=== PATIENT | male | born 1960 | race African-American/Black ===

== ENCOUNTER → 2022-09-08 | Outpatient (CLI) | payer BC | END | disposition home or self-care (01) | LOC: LABWHC1 09:55 | PROVIDERS: ATTEND Surgery Plastic and Reconstructive Surgery | DX: Z01.89 Encounter for other specified special examinations (principal) | CPT/HCPCS: 36415; 93005 ==

== ENCOUNTER 2022-09-25 06:50 | Day surgery (SDC) | payer BC, OTHER ==
[2022-09-15 10:23] VITALS: BMI 25.0
[~2022-09-25 06:50] MED LIST: HEPARIN SODIUM,PORCINE/PF 5,000 UNIT/0.5 ML SYRINGE SQ PRN
[2022-09-25] MEDS ORDERED: ACETAMINOPHEN TAB 500 MG TAB PO STA (07:19)
[2022-09-25] MEDS ORDERED: TAMSULOSIN 0.4 MG CAP.ER.24H PO STA (07:19)
[2022-09-25] MEDS ORDERED: GABAPENTIN 300 MG CAP PO STA (07:19)
[2022-09-25] MEDS ORDERED: MELOXICAM 7.5 MG TAB PO SCH (07:19)
[2022-09-25] MEDS ORDERED: ONDANSETRON 4 MG/2 ML VIAL IVP ONE ×2 (07:24→11:16)
[2022-09-25] MEDS ORDERED: LIDOCAINE 1% (10MG/ML) FOR IV START INTRADERMA PRN (07:24)
[2022-09-25] MEDS ORDERED: LACTATED RINGERS 1,000 ML IV SCH (07:24)
[2022-09-25] MEDS ORDERED: DEXAMETHASONE SOD PHOSPHATE 4 MG/ML 1 ML VIAL IV ONE (07:24)
--- NOTE | 2022-09-25 07:27 | P.GSHP ---
History of Present Illness H&P Date: 09/25/22 CHIEF COMPLAINT: Inguinal hernia, right. HISTORY OF PRESENT ILLNESS: The patient is a 62-year-old male who presents with a history of swelling and pain along the right groin. He has noted increased swelling including pain of the area. Now he presents for repair of his inguinal hernia. PAST MEDICAL HISTORY: Please see list. PAST SURGICAL HISTORY: Please see list. MEDICATIONS: Please see list. ALLERGIES: Please see list. SOCIAL HISTORY: No illicit drug use FAMILY HISTORY: No reports of Crohn disease or ulcerative colitis. REVIEW OF ORGAN SYSTEMS: CONSTITUTIONAL: No reports of fevers or chills. No reports of weight loss despite prior attempts. GI: Denies any blood in stools or constipation. PHYSICAL EXAM: VITAL SIGNS: Stable GENERAL: Well-developed pleasant in no acute distress. HEENT: No scleral icterus. Extraocular movements grossly intact. Moist buccal mucosa. NECK: Supple without lymphadenopathy. CHEST: Unlabored respirations. Equal bilateral excursions. CARDIOVASCULAR: Regular rate and rhythm. Distal 2+ pulses. ABDOMEN: Soft, nondistended. No peritoneal signs. Right groin swelling. MUSCULOSKELETAL: No clubbing, cyanosis, or edema. ASSESSMENT: 1. Inguinal hernia, right initial and symptomatic. PLAN: 1. Recommend proceeding robotic inguinal repair with mesh with possible bilateral approach. 2. Benefits and risks of surgical intervention was discussed including possibility of open technique. 3. DVT prophylaxis. 4. Antibiotic prophylaxis. 5. Non narcotic pain management including abdominal wall block described 6. Blood sugar glucose described. 7. Weight loss management described. Past Medical History Past Medical History: Cancer, Hyperlipidemia, Thyroid Disorder History of Any Multi-Drug Resistant Organisms: None Reported Past Surgical History: Prostate Surgery Additional Past Surgical History / Comment(s): PROSTATECTOMY 2020 Past Anesthesia/Blood Transfusion Reactions: No Reported Reaction Smoking Status: Current every day smoker - Past Family History Mother Family Medical History: No Reported History Father Family Medical History: Cancer Medications and Allergies Home Medications Medication Instructions Recorded Confirmed Type Levothyroxine Sodium [Synthroid] 50 mcg PO DAILY 09/14/22 09/20/22 History Simvastatin 40 mg PO DAILY 09/14/22 09/20/22 History Allergies Allergy/AdvReac Type Severity Reaction Status Date / Time No Known Allergies Allergy Verified 09/15/22 09:45
[2022-09-25] MEDS ORDERED: MIDAZOLAM 2 MG/2 ML VIAL IVP ONE (08:08)
[2022-09-25] MEDS ORDERED: fentaNYL (PF) 50 MCG/1 ML VIAL IVP ONE (08:08)
[2022-09-25] MEDS ORDERED: ROCURONIUM 10 MG/ML (5 ML VIAL) IV ONE (08:43)
[2022-09-25] MEDS ORDERED: LIDOCAINE 2% INJ 20 MG/ML (2 ML VIAL) ONE (08:43)
[2022-09-25] MEDS ORDERED: PROPOFOL 10 MG/ML 20 ML VIAL IV ONE (08:43)
[2022-09-25] MEDS ORDERED: MIDAZOLAM 2 MG/2 ML VIAL ONE (08:43)
[2022-09-25] MEDS ORDERED: ROPIVACAINE 5 MG/ML 30 ML VIAL ONE (08:43)
[2022-09-25] MEDS ORDERED: HYDROmorphone (PF) 1 MG/ML ONE ×2 (08:43)
[2022-09-25] MEDS ORDERED: KETOROLAC 15 MG/ML 1 ML VIAL ONE (08:43)
[2022-09-25] MEDS ORDERED: DEXAMETHASONE SOD PHOSPHATE 4 MG/ML 1 ML VIAL ONE (08:43)
--- NOTE | 2022-09-25 09:02 | P.ANPRN ---
Procedure Note - Anesthesia - Nerve Block Performed Bilateral Erector Spinae Single Time Out Performed: Yes Date of Procedure: 09/25/22 Procedure Start Time: :07 Procedure Stop Time: 08:15 Location of Patient: PreOp Indication: Acute Post-Operative Pain, Requested by Surgeon Sedation Type: Sedate with meaningful contact maintained Preparation: Sterile Prep, Sterile Dressing Position: Prone Catheter: None Needle Types: Facet Needle Gauge: 20 Ultrasound used to visualize needle placement: Yes Ultrasound used to observe medication spread: Yes Injectate: Other (see comment) (ropivacaine 0.25% w/ decadron 2 mg 30 ml per side) Blood Aspirated: No Pain Paresthesia on Injection Noted: No Resistance on Injection: Normal Image Stored and Saved: Yes Events: Uneventful and Well Tolerated
[2022-09-25] MEDS ORDERED: BUPIVACAIN-EPI 0.25%-1:200,000 30 ML VIAL SQ ONE (09:05)
[2022-09-25] MEDS ORDERED: LACTATED RINGERS 1,000 ML IV ONE (09:36)
[2022-09-25 10:15] LABS: Basophils # (A) 0.1 k/uL (0-0.2); Basophils % (A) 1 %; Eosinophils # (A) 0.3 k/uL (0-0.7); Eosinophils % (A) 3 %; HCT 48.2 % (39.0-53.0); HGB 16.2 gm/dL (13.0-17.5); Lymphocytes # (A) 0.9 k/uL (1.0-4.8); Lymphocytes % (A) 10 %; MCH 31.1 pg (25.0-35.0); MCHC 33.7 g/dL (31.0-37.0); MCV 92.3 fL (80.0-100.0); Mean Platelet Volume 10.7; Monocytes # (A) 0.4 k/uL (0-1.0); Monocytes % (A) 4 %; Neutrophils # (A) 7.2 k/uL (1.3-7.7); Neutrophils % (A) 81 %; Platelet Count 186 k/uL (150-450); RBC 5.22 m/uL (4.30-5.90); RDW 14.7 % (11.5-15.5); WBC 8.9 k/uL (3.8-10.6)
[2022-09-25 10:27] VITALS: TEMP 97.5
[2022-09-25] MEDS: HYDROmorphone 0.5 MG/0.5 ML SYRINGE IVP PRN ×2 (10:52→11:22)
--- NOTE | 2022-09-25 11:16 | P.OP ---
Date of Procedure: 09/25/22 Description of Procedure: SURGEON: MARIA LUISA CHU MD PREOPERATIVE DIAGNOSES: 1. Initial right inguinal hernia. 2. History of robotic prostatectomy 3. Hyperlipidemia 4. Hypothyroidism POSTOPERATIVE DIAGNOSES: 1. Initial right inguinal hernia, direct 2. History of robotic prostatectomy 3. Hyperlipidemia 4. Hypothyroidism 5. Peritoneal adhesions, pelvic due to prostatectomy OPERATION: 1. Robotic-assisted da Maryanne Xi laparoscopic lysis of adhesions 2. Robotic-assisted da Maryanne Xi laparoscopic right inguinal hernia repair with mesh, 11.[address] ANESTHESIA: General with local anesthetic ESTIMATED BLOOD LOSS: 5 mL. SPECIMENS REMOVED: Right inguinal hernia sac COMPLICATIONS: None. FINDINGS: 1. Nyhus type II direct inguinal hernia, reducible, initial, 1 cm 2. Absorbable 2-0 VLOC used 3. Multiple open defects superior to the bladder with risk of incarcerated incisional hernia of the pelvis closed using 2-0 VLOC used 4. Distended and redundant sigmoid colon with intermittent sigmoid volvulus reduced 5. Appendix unremarkable 6. Right pelvic adhesions cecum to the abdominal wall identified INDICATIONS: The patient is a 62-year-old gentleman who presents with history of right groin pain and prior prostatectomy. Now presents for definitive surgical intervention. Laparoscopic versus open and robotic approaches were discussed. Benefits and risks including bleeding, infection, injury to the vas deferens as well as sterility and chronic groin pain were reviewed. Placement of mesh was also described. Informed consent was obtained. DESCRIPTION: In the preoperative area, the patient was marked with indelible marker along the inguinal hernia. The patient was brought to the operating room and initially laid in supine position. The abdomen had been prepped and draped in standard sterile fashion. Ioban draping was also placed. Prior to incision, a timeout protocol was confirmed with surgical team regarding patient's name including procedures to be performed and location along the right groin. Initial positioning for the robotic assisted ports were selected whereby 20 cm superior to the target anatomy, 0 degree 5 mm laparoscopic trocar entry was performed at the left upper quadrant. The abdomen was insufflated to 15 mmHg which he had tolerated well. Diagnostic laparoscopy demonstrated a indirect inguinal hernia along the right groin. Next, along the epigastrium, 8 mm robot trocar was placed. An 8-mm robotic trocar was placed under direct visualization at the right upper quadrant. An 8 mm port was placed at the left upper quadrant. All trocars were positioned between 8 to 10-cm apart from each other. An accessory trocar was placed on the right lateral abdominal wall 12 mm. The [employer] XI robot was primed, draped, prepared for docking along the right side of the patient. The patient was placed in Trendelenberg position 21-degrees. I then went to the [employer] Xi console. The preschool teacher's assistant was at bedside for exchange of the robot arms and equipment. No hernia was identified along the left groin. Omental to peritoneal adhesions of the abdominal wall was lysed using scissor cautery. The right direct inguinal hernia sac was evaginated whereby the peritoneum was scored using Endo scissors with cautery. Once completely reduced into the abdominal cavity, the peritoneal sac of the hernia was stripped and sac was resected and then passed off for further pathological analysis. The size of the hernia defect was 1 cm with intraoperative films obtained. Using absorbable 2-0 VLOC, the peritoneal defect of the right inguinal hernia site was closed using a pursestring suture. The defect was found to be completely closed with complete reduction of the right direct inguinal hernia was confirmed. As an onlay, an 11.[address] mesh by [employer] was initially cut in half and entered into the abdominal cavity via the 8 mm trocar. The mesh was tacked to the pelvis using absorbable 2-0 VLOC 6-inch length sutures. Separate superior posterior bladder defect with multiple envelopes and risks were incarcerated incisional hernia was identified and closed using 2-0 VLOC. The robot was undocked from the patient's bedside. I then rescrubbed into the case. A 12-mm trocar in the right lateral abdominal wall was oversewn using 0 Vicryl and Sarmad Harvey. Insufflation was released from the abdominal cavity and all instruments were removed from the abdominal cavity. The rest of incisions were reapproximated using 4-0 Monocryl in a running subcuticular fashion. Incisions were cleansed using dilute hydrogen peroxide. Liquid glue was applied to the skin. At the end of the procedure, the needle, sponge and instrument counts had been verified correct by the surgical garment fitter. The patient had tolerated the procedure well and was taken to the postanesthesia care unit in stable condition. Plan - Discharge Summary Discharge Rx Participant: Yes New Discharge Prescriptions: New Simethicone [Gas-X] 125 mg PO AC-TID PRN #20 capsule PRN Reason: Pain Acetaminophen Tab [Tylenol Tab] 1,000 mg PO Q6HR PRN #30 tablet PRN Reason: Pain Ibuprofen [Motrin] 600 mg PO Q8HR PRN #30 tab PRN Reason: Pain Continue Levothyroxine Sodium [Synthroid] 50 mcg PO DAILY Simvastatin 40 mg PO DAILY Discharge Medication List Levothyroxine Sodium [Synthroid] 50 mcg PO DAILY 09/14/22 [History] Simvastatin 40 mg PO DAILY 09/14/22 [History] Acetaminophen Tab [Tylenol Tab] 1,000 mg PO Q6HR PRN #30 tablet 09/25/22 [Rx] Ibuprofen [Motrin] 600 mg PO Q8HR PRN #30 tab 09/25/22 [Rx] Simethicone [Gas-X] 125 mg PO AC-TID PRN #20 capsule 09/25/22 [Rx] Follow up Appointment(s)/Referral(s): Maria Luisa Chu MD [STAFF PHYSICIAN] - 10/03/22 (TELE[facility]) Patient Instructions/Handouts: Laparoscopic Herniorrhaphy (IP), Inguinal Hernia (GEN) Activity/Diet/Wound Care/Special Instructions: No lifting over 10 pounds in 2 weeks until Oct 09January shower. No bath tub soaks for two weeks until Oct 09 Diet as tolerated. Use Tylenol, simethicone and ibuprofen or Aleve scheduled for the next 24-48 hours for best pain relief. Use ice along incisions for today to prevent swelling. Discharge Disposition: HOME SELF-CARE
[2022-09-25 11:47] LABS: Albumin 4.1 g/dL (3.5-5.0); Total Bilirubin 1.5 mg/dL (0.2-1.3)
[2022-09-25 12:06] LABS: Potassium 4.7 mmol/L (3.5-5.1)
[2022-09-25 13:38] VITALS: BP 121/81; PULSE 86; RESP 18
== END 2022-09-25 13:52 | disposition home or self-care (01) ==
LOC: OR 06:50
PROVIDERS: ATTEND Surgery Plastic and Reconstructive Surgery
DX: K40.90 Unilateral inguinal hernia, without obstruction or gangrene, not specified as recurrent (principal); K66.0 Peritoneal adhesions (postprocedural) (postinfection); E78.5 Hyperlipidemia, unspecified; E03.9 Hypothyroidism, unspecified; Z79.890 Hormone replacement therapy; Z79.1 Long term (current) use of non-steroidal anti-inflammatories (NSAID); Z79.02 Long term (current) use of antithrombotics/antiplatelets; Z90.79 Acquired absence of other genital organ(s); F17.200 Nicotine dependence, unspecified, uncomplicated; G89.18 Other acute postprocedural pain
CPT/HCPCS: 49650; 76942; 64999; 80053; 85025; C1781; J2250; J1100; J0690; J2405; J1170 ×2; J2795; J1885; J2704; J2001; J3010

== ENCOUNTER → 2024-01-16 | Outpatient (CLI) | payer MEDICARE, OTHER ==
--- NOTE | 2024-01-16 21:33 | US ---
EXAMINATION TYPE: US groin RT DATE OF EXAM: 01/16/2024 COMPARISON: NONE CLINICAL INDICATION: Male, 63 years old with history of R10.2 PELVIC AND PERINEAL PAIN; Prior inguina l hernia surgery august 2022. Pain in rt groin that comes and goes. TECHNIQUE: Scanned FINDINGS: There is a 0.6cm lymph node seen with a 0.3cm cortex. The right groin area of concern was scanned and valsalva maneuver was used. There were no distinct sonographic abnormalities seen with ul sam today. IMPRESSION: 1. Right inguinal region at the area of the patient's concern has a negative ultrasound.
== END | disposition home or self-care (01) ==
LOC: RADUSWWP 12:58
PROVIDERS: ATTEND Family Medicine
DX: R10.2 Pelvic and perineal pain (principal)

== ENCOUNTER → 2024-01-18 | Outpatient (CLI) | payer MEDICARE, OTHER ==
--- NOTE | 2024-01-26 18:15 | CTL ---
EXAMINATION TYPE: CT Low Dose Lung DATE OF EXAM: 01/18/2024 7:05 PM CLINICAL INDICATION:Male, 63 years old with history of Z12.2 LUNG CA SCR F17.210 CURRENT SMOKER; Curr ent smoker. 1/2 PPD x49yrs. , history of tobacco use. COMPARISON: None. TECHNIQUE: CT scan of the chest obtained without contrast from approximately the lung apices through the upper abdomen. Axial, coronal and sagittal reformatted images were obtained. Low dose technique w as utilized for nodule screening purposes. CT DLP: 86.6 mGycm, Automated exposure control for dose reduction was used. CT Contrast: IV contrast used: None. Oral contrast used: None. FINDINGS: Lack of intravenous contrast and low dose technique limits the evaluation of the vascular and soft ti ssue structures. LUNGS: No evidence of pulmonary fibrosis. No evidence of focal consolidation or infiltrate. There are emphysematous changes bilaterally, minimal in the upper lobes. NODULES: There is a calcified 7.5 mm granuloma in the left lower lobe image 231 series 4. No clinically significant noncalcified nodules identified. PLEURA: No pleural effusion or pneumothorax. AIRWAY: Central airways are patent. LOWER NECK: No significant findings. MEDIASTINUM: No evidence of enlarged mediastinal or hilar nodes, in the limits of noncontrast exam.. Small calcified nodes medial to the proximal left lower lobe bronchus consistent with remote granulo matous disease. Mild circumferentially thickened appearance of the distal esophagus, considerations i nclude esophagitis. HEART: Normal heart size. Mild to moderate coronary artery calcification and/or stents. No appreciabl e pericardial effusion. VASCULATURE: Mild atherosclerotic calcifications of the aorta and branches. Ascending aorta is about 2.8 CM, descending is 2.5 CM. Aorta is considered normal in size. Pulmonary trunk measures 2.6 CM, normal in size. Vessels otherwise not further assessed without contrast. SOFT TISSUES/LYMPH NODES: Unremarkable soft tissues. No axillary adenopathy. UPPER ABDOMEN: No significant findings. MUSCULOSKELETAL: No acute osseous abnormalities. Mild degenerative changes. IMPRESSION: 1. No clinically significant pulmonary nodules. 2. A 7.5 mm calcified nodule in the left lower lobe and calcified left hilar region lymph nodes, cons istent with remote granulomatous disease. 3. Minimal pulmonary emphysematous changes. CT LUNG-RADS AND FOLLOWUP RECOMMENDATION: Lung-RADS Category 1, Negative: Continue annual screening with LDCT in 12 months. C Modifier (Personal history of lung cancer?): No. S Modifier (Other clinically significant or potentially significant findings?): No. Other significant or potentially significant abnormalities: None. Recommend smoking cessation (if current smoker), or continuation of smoking cessation (if prior smoke r). Annual screening for lung cancer with low-dose computed tomography is recommended in adults ages 55 to 77 years who have a 30 pack-year smoking history and currently smoke or have quit within the pa st 15 years. Screening should be discontinued once a person has not smoked for 15 years or develops a health problem that substantially limits life expectancy or the ability or willingness to have curat miriam lung surgery. Lung-RADS v.2021 Link Here [email or web address]
== END | disposition home or self-care (01) ==
LOC: RADCTMAIN 18:07
PROVIDERS: ATTEND Family Medicine
DX: Z12.2 Encounter for screening for malignant neoplasm of respiratory organs (principal); R91.1 Solitary pulmonary nodule; F17.210 Nicotine dependence, cigarettes, uncomplicated
CPT/HCPCS: 71271